=== PATIENT | female | born 2000 | race African-American/Black ===

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

== ENCOUNTER 2024-04-19 00:29 | Emergency (ER) | payer OTHER ==
[2024-04-19] MEDS: tiZANidine 4 MG Tab PO ONE (01:04)
== END 2024-04-19 01:10 | disposition home or self-care (01) ==
LOC: FB.ED 00:29
DX: S16.1XXA Strain of muscle, fascia and tendon at neck level, initial encounter (principal); V89.2XXA Person injured in unspecified motor-vehicle accident, traffic, initial encounter
CPT/HCPCS: 99283; A9270-GY